=== PATIENT | male | born 1990 | race Caucasian/White ===

== ENCOUNTER 2018-09-30 17:22 | Emergency (ER) | payer OTHER ==
[~2018-09-30] VITALS: Ht 175.3 cm; Wt 85.7 kg
[2018-09-30 17:27] VITALS: BP 144/89
--- NOTE | 2018-09-30 17:37 | NUR ---
ED Nurse Note: PT FROM HOME CAME IN DUE TO POSTERIOR AND UPPER BACK PAIN X 6 MONTHS. NO RECENT INJURY. AAO X4, AMBULATES WITH STEADY GAIT.
--- NOTE | 2018-09-30 17:56 | Emergency Room Report ---
History of Present Illness General Chief Complaint: Pain Source: Patient Present Illness HPI Patient presents with complaints of body ache A burning sensation on his back Reports that over the past 6 months He feels his symptoms have been worsening at times he is getting pains in the upper chest area Denies any pleurisy denies any vomiting or diarrhea Denies any back or flank pain denies any dysuria frequency denies any recent trauma On further questioning patient was seen at a different hospital about 6 weeks ago reports that his CT of his head was normal however symptoms continue and presents to the ER Allergies: Uncoded Allergies: SULFA (Allergy, Unknown, 09/30/18) Patient History Past Medical History: none Pertinent Family History: none Reviewed Nursing Documentation: PMH: Agreed; PSxH: Agreed Nursing Documentation-PMH Past Medical History: No Stated History Review of Systems All Other Systems: negative except mentioned in HPI Physical Exam Vital Signs Date Time Temp Pulse Resp B/P (MAP) Pulse Ox O2 Delivery O2 Flow Rate FiO2 09/30/18 17:27 98.2 77 20 144/89 (107) 96 Room Air Sp02 EP Interpretation: reviewed, normal General Appearance: well appearing, no apparent distress Head: normocephalic, atraumatic Eyes: bilateral eye PERRL, bilateral eye EOMI ENT: hearing grossly normal, normal pharynx, TMs + canals normal, uvula midline Neck: full range of motion, supple, no meningismus, no bony tend Respiratory: lungs clear, normal breath sounds, no rhonchi, no respiratory distress, no retraction, no accessory muscle use Cardiovascular #1: normal peripheral pulses, regular rate, rhythm, no edema, no gallop, no JVD, no murmur Gastrointestinal: normal bowel sounds, non tender, soft, no mass, no organomegaly, non-distended, no guarding, no hernia, no pulsatile mass, no rebound Genitourinary: no CVA tenderness Musculoskeletal: normal inspection Neurologic: oriented x3, responsive, language tutor III-XII nml as tested, motor strength/ tone normal, sensory intact Psychiatric: mood/affect normal Lymphatic: normal inspection, no adenopathy Medical Decision Making Diagnostic Impression: Primary Impression: Neuropathy ER Course Multiple differentials including but not limited to infectious, cardiac, cardiopulmonary, electrolyte abnormalities considered patient had extensive blood work and chest x-ray imaging obtained No obvious acute pathology is seen Patient remains somewhat anxious Requesting a 'total body picture' Patient reports being recently at [facility] emergency room and receiving a CAT scan of the head which was negative Patient does not meet criteria for further imaging of the abdomen of the pelvic area Is encouraged highly to Make contact with primary physician and clinic for close outpatient follow-up Labs Test 09/30/18 17:55 White Blood Count 6.6 K/UL (4.8-10.8) Red Blood Count 5.55 M/UL (4.70-6.10) Hemoglobin 16.7 G/DL (14.2-18.0) Hematocrit 48.7 % (42.0-52.0) Mean Corpuscular Volume 88 FL (80-99) Mean Corpuscular Hemoglobin 30.1 PG (27.0-31.0) Mean Corpuscular Hemoglobin Concent 34.3 G/DL (32.0-36.0) Red Cell Distribution Width 11.4 % (11.6-14.8) Platelet Count 274 K/UL (150-450) Mean Platelet Volume 5.7 FL (6.5-10.1) Neutrophils (%) (Auto) 61.4 % (45.0-75.0) Lymphocytes (%) (Auto) 29.8 % (20.0-45.0) Monocytes (%) (Auto) 6.5 % (1.0-10.0) Eosinophils (%) (Auto) 1.3 % (0.0-3.0) Basophils (%) (Auto) 1.0 % (0.0-2.0) Urine Color Pale yellow Urine Appearance Clear Urine pH 6.5 (4.5-8.0) Urine Specific [place] 1.005 (1.005-1.035) Urine Protein Negative (NEGATIVE) Urine Glucose (UA) Negative (NEGATIVE) Urine Ketones Negative (NEGATIVE) Urine Blood Negative (NEGATIVE) Urine Nitrite Negative (NEGATIVE) Urine Bilirubin Negative (NEGATIVE) Urine Urobilinogen Normal MG/DL (0.0-1.0) Urine Leukocyte Esterase 1+ (NEGATIVE) Urine RBC 0-2 /HPF (0 - 0) Urine WBC 2-4 /HPF (0 - 0) Urine Squamous Epithelial Cells None /LPF (NONE/OCC) Urine Bacteria Few /HPF (NONE) Sodium Level 138 MMOL/L (136-145) Potassium Level 3.9 MMOL/L (3.5-5.1) Chloride Level 102 MMOL/L (98-107) Carbon Dioxide Level 27 MMOL/L (21-32) Anion Gap 9 mmol/L (5-15) Blood Urea Nitrogen 12 mg/dL (7-18) Creatinine 0.9 MG/DL (0.55-1.30) Estimat Glomerular Filtration Rate > 60 mL/min (>60) Glucose Level 106 MG/DL (74-106) Calcium Level 9.2 MG/DL (8.5-10.1) Total Bilirubin 0.8 MG/DL (0.2-1.0) Aspartate Amino Transf (AST/SGOT) 19 U/L (15-37) Alanine Aminotransferase (ALT/SGPT) 23 U/L (12-78) Alkaline Phosphatase 80 U/L (46-116) Total Creatine Kinase 193 U/L (26-308) Total Protein 7.5 G/DL (6.4-8.2) Albumin 4.6 G/DL (3.4-5.0) Globulin 2.9 g/dL Albumin/Globulin Ratio 1.6 (1.0-2.7) Lipase 190 U/L (73-393) Urine Opiates Screen Negative (NEGATIVE) Urine Barbiturates Screen Negative (NEGATIVE) Phencyclidine (PCP) Screen Negative (NEGATIVE) Urine Amphetamines Screen Negative (NEGATIVE) Urine Benzodiazepines Screen Negative (NEGATIVE) Urine Cocaine Screen Negative (NEGATIVE) Urine Marijuana (THC) Screen Negative (NEGATIVE) Chest X-Ray Diagnostic Results Chest X-Ray Diagnostic Results : Chest X-Ray Ordered: Yes # of Views/Limited/Complete: 1 View Indication: Chest Pain EP Interpretation: Yes Interpretation: no consolidation, no effusion, no pneumothorax Impression: No acute disease Electronically Signed by: Umang Fernandez DO Last Vital Signs Date Time Temp Pulse Resp B/P (MAP) Pulse Ox O2 Delivery O2 Flow Rate FiO2 09/30/18 17:27 98.2 77 20 144/89 96 Room Air Status: improved Disposition: HOME, SELF-CARE Condition: Improved Additional Instructions: Patient is provided with the discharge instructions notified to follow up with primary doctor in the next 2-3 days otherwise return to the er with any worsening symptoms. Please note that this report is being documented using [employer] technology. This can lead to erroneous entry secondary to incorrect interpretation by the dictating instrument. Umang Fernandez DO Sep 30, 2018 17:56
[2018-09-30 18:06] LABS: EOSINOPHILS % (AUTO) 1.3 % (0.0-3.0); HEMATOCRIT 48.7 % (42.0-52.0); HEMOGLOBIN 16.7 G/DL (14.2-18.0); LYMPHOCYTES % (AUTO) 29.8 % (20.0-45.0); MEAN CORPUSCULAR VOLUME 88 FL (80-99); MONOCYTES % (AUTO) 6.5 % (1.0-10.0); NEUTROPHILS % (AUTO) 61.4 % (45.0-75.0); PLATELET COUNT 274 K/UL (150-450); RED BLOOD COUNT 5.55 M/UL (4.70-6.10); RED CELL DISTRIBUTION WIDTH 11.4 % (11.6-14.8); WHITE BLOOD COUNT 6.6 K/UL (4.8-10.8)
[2018-09-30 18:15] LABS: ANION GAP 9 mmol/L (5-15); BLOOD UREA NITROGEN 12 mg/dL (7-18); CALCIUM 9.2 MG/DL (8.5-10.1); CARBON DIOXIDE 27 MMOL/L (21-32); CHLORIDE 102 MMOL/L (98-107); CREATININE 0.9 MG/DL (0.55-1.30); POTASSIUM 3.9 MMOL/L (3.5-5.1); SODIUM 138 MMOL/L (136-145)
[2018-09-30 18:20] LABS: ALANINE AMINOTRANSFERASE 23 U/L (12-78); ALBUMIN 4.6 G/DL (3.4-5.0); ALBUMIN/GLOBULIN RATIO 1.6 (1.0-2.7); ALKALINE PHOSPHATASE 80 U/L (46-116); ASPARTATE AMINO TRANSFERASE 19 U/L (15-37); BILIRUBIN,TOTAL 0.8 MG/DL (0.2-1.0)
[2018-09-30 18:21] LABS: CREATINE KINASE 193 U/L (26-308)
[2018-09-30 18:45] LABS: APPEARANCE,URINE CLEAR; BILIRUBIN, URINE NEGATIVE (NEGATIVE); COLOR,URINE PALE YELLOW; GLUCOSE, URINE (UA) NEGATIVE (NEGATIVE); KETONES,URINE NEGATIVE (NEGATIVE); LEUKOCYTE ESTERASE ,URINE 1+ (NEGATIVE); NITRITE,URINE NEGATIVE (NEGATIVE); PH,URINE 6.5 (4.5-8.0); PROTEIN,URINE NEGATIVE (NEGATIVE); UROBILINOGEN,URINE NORMAL MG/DL (0.0-1.0)
--- NOTE | 2018-09-30 19:06 | NUR ---
HAND-OFF: Report given to RAYA AKINS.
[2018-09-30 19:50] VITALS: BP 134/80
--- NOTE | 2018-09-30 19:50 | NUR ---
ED Nurse Note: PT CLEARED TO BE D/C PER ERMD, PT DISCHARGE AND AFTERCARE INSTRUCTION PROVIDED W/ PRESCRIPTION, PT EDUCATION DONE VIA DISCUSSION AND HANDOUT, PT ADVISED TO FOLLOW UP WITH PCP OR RETURN TO ED, LIST OF CLINIC PROVIDED, PT VERBALIZED UNDERSTANDING AND AGREES WITH PLAN, VSS, AMBULATORY W/ STEADY GAIT, LEFT W/ ALL BELONGINGS ACCOMPANIED BY FRIEND.
--- NOTE | 2018-10-01 10:23 | Diagnostic Imaging Report ---
Indication: Shortness of breath Technique: One view of the chest Comparison: none Findings: Lungs and pleural spaces are clear. Heart size is normal Impression: No acute process
== END 2018-09-30 20:00 | disposition home or self-care (01) ==
LOC: EMR 19:59
DX: G62.9 Polyneuropathy, unspecified (principal); Z88.2 Allergy status to sulfonamides
CPT/HCPCS: 36415; 71045; 80053; 80307; 81003; 82550; 83690; 85025; 99284

== ENCOUNTER 2018-11-26 18:36 | Emergency (ER) | payer OTHER ==
[~2018-11-26] VITALS: Ht 175.3 cm; Wt 76.2 kg
[2018-11-26] MEDS ORDERED: NKM (18:45)
[2018-11-26] MEDS ORDERED: HYDROcodone/Acetamin 5/325 tab ORAL ONE (19:15)
--- NOTE | 2018-11-26 19:15 | NUR ---
ED Nurse Note: Recieved report from am nurse to resume care, pt is currently in imaging, will assess and resume care when pt returns to department.
--- NOTE | 2018-11-26 19:28 | NUR ---
ED Nurse Note: Recieved pt on [facility] awake, alert and oriented x 4, pt states has mild dizziness with headache and back pain, pt medicated as ordered, placed on monitoring, spouse at bedside, will resume care as ordered and continue to closely monitor.
[2018-11-26 19:30] VITALS: BP 129/77
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
[2018-11-26] MEDS ORDERED: DiphenhydrAMINE 50mg/ml Inj IM ONE (20:45)
[2018-11-26] MEDS ORDERED: ROBAXIN-750750 MG PO (20:55)
[2018-11-26] MEDS ORDERED: TYLENOL EXTRA500 MG ORAL (20:55)
[2018-11-26 21:00] VITALS: BP 124/81
[2018-11-26 21:15] VITALS: BP 124/81
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
== END 2018-11-26 21:15 | disposition home or self-care (01) ==
LOC: EMR 19:19
DX: S00.93XA Contusion of unspecified part of head, initial encounter (principal); M62.830 Muscle spasm of back; M62.838 Other muscle spasm; M54.2 Cervicalgia; Z88.2 Allergy status to sulfonamides; F41.9 Anxiety disorder, unspecified; M54.9 Dorsalgia, unspecified; V43.51XA Car driver injured in collision with sport utility vehicle in traffic accident, initial encounter; Y92.410 Unspecified street and highway as the place of occurrence of the external cause
CPT/HCPCS: 70450; 72125; 72128; 72131; 96372; 99284; J1200